=== PATIENT | female | born 1930 | race Caucasian/White ===

== ENCOUNTER 2016-04-15 11:48 | Inpatient (IN) | payer MEDICARE, BC ==
--- NOTE | ~2016-04-15 | CR72 ---
[facility] A Service of [facility] RADIOLOGY TEXT RESULTS PATIENT: MANDY GORDILLO LOCATION: [facility] 569-01 : 32 UNIT #: [id number] AGE: [address]: Zion Stoner MD SEX: F ORDER DR: [id number] [facility] [address] [place], [place] [address] [id number] I MR#: [id number] Acc #: [id number] NAME: MANDY GORDILLO : 1930 SEX: F STUDY DATE/TIME: 04/15/2016 11:25 UNIT: [facility] ROOM: [facility] STUDY DESCRIPTION: CR Chest Single View Portable Attending Physician: Zion Stoner M.D. Ordering Physician: Usha Alegre M.D. Primary Care Physician: Danny Nicolas M.D. MEDICAL IMAGING REPORT This report is preliminary unless electronic signature is present EXAM Chest x-ray portable single view frontal. HISTORY Short of air, chest pain for a month, history of hypertension. COMMENT Single frontal portable view of the chest timed 11:25 on 04/15/2016 reviewed. Comparison from 07/29/2003. Patient has had a left shoulder arthroplasty. 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 The cardiac silhouette is moderately enlarged and there is at least ectasia of the thoracic aorta. Film is lordotic and the patient is also rotated. I believe there is some underlying chronic lung disease with distortion of parenchymal markings, and there is either some atelectasis or chronic scarring at the lung bases. No pneumothorax. No congestive failure. No pleural effusion. IMPRESSION 1. Moderate cardiac silhouette enlargement with at least ectasia of the thoracic aorta. Probably some chronic interstitial disease and some either chronic scarring or atelectasis at lung bases, but otherwise no acute infiltrate, no acute congestive failure, pleural effusion or pneumothorax suspected. Study is limited by patient rotation to the right side lordotic film positioning. 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 Dictated by... Tori Dixon M.D. THIS IS AN ELECTRONICALLY VERIFIED REPORT Tori Dixon M.D. at 04/16/2016 11:38 AM [facility] A Service of [facility] RADIOLOGY TEXT RESULTS PATIENT: MANDY GORDILLO LOCATION: [facility] 569-01 : 32 UNIT #: [id number] AGE: [address]: Zion Stoner MD SEX: F ORDER DR: LEN/keshia TD: 04/15/2016 23:36 JOB #: [id number] MEDICAL IMAGING REPORT COPY
--- NOTE | ~2016-04-15 | HP ---
Unit #: [id number] #: [id number] Patient: MANDY GORDILLO [id number] [facility]. [place], [place] [address] [id number] I MR#: [id number] NAME: MANDY GORDILLO ROOM: 569 Age: 86 Sex: F Admission Date: 04/15/2016 : 1930 Attending Physician: Zion Stoner M.D. Primary Care Physician: Danny Nicolas M.D. HISTORY AND PHYSICAL CHIEF COMPLAINT Shortness of breath. HISTORY OF PRESENT ILLNESS 86-year-old female who has COPD, has had a gradual worsening shortness of breath, primarily dyspnea on exertion. It worsened to the point where she required presentation to the emergency room. Saturations were 88% upon presentation. She was treated with steroids and admitted to the hospital. She then was treated with nebulized bronchodilators, oral antibiotics and steroids were continued. She does feel better today. She had some mild wheezing, mildly increased mucopurulent sputum, but denied fever or hemoptysis or chest pain. She does have some dyspnea on exertion at baseline and some chronic mild sputum production but generally feels that she does fairly well. PAST MEDICAL HISTORY Remarkable for: 1. COPD. 2. History of hypertension. Otherwise, she denies any medical problems. When I asked her what her medications were she said "I have a whole list" but yet denies any other problems. Per her Med Rec list, it looks like she has hypothyroidism, depression, hyperlipidemia and chronic pain. There is some mention of pulmonary hypertension in the EHR but she denies that. MEDICATIONS Medications per Med Rec sheet include: 1. Fosamax. 2. Synthroid. 3. Mirapex extended release. 4. Morphine. 5. Gabapentin. 6. Hydrocodone. 7. Lisinopril. 8. Celexa. 9. Pravastatin. 10. Meloxicam. 11. Desyrel. 12. Aspirin. ALLERGIES Demerol, sulfa, unknown reaction. Unit #: [id number] #: [id number] Patient: MANDY GORDILLO SOCIAL HISTORY She tells me she quit smoking 20 years ago although the ER face sheet states that she smokes. FAMILY HISTORY No familial lung disease. REVIEW OF SYSTEMS No fever, chills, weight loss, chest pain, palpitations, abdominal pain, melena, hematochezia, hematuria, dysuria, focal weakness, paresthesias, leg pain or swelling, headache, dizziness. Further review of systems negative. PHYSICAL EXAMINATION GENERAL: Elderly but quite pleasant female who is sitting on the side of her bed with oxygen on, reading a book. VITAL SIGNS: She is afebrile. Pulse 78, respiratory rate 18, blood pressure is 157/76. She is 5 foot 2, 122 pounds. HEENT: Pupils equal, round, reactive to light. Sclerae anicteric. Head atraumatic. Neck supple. No supraclavicular or cervical adenopathy appreciated. Mucous membranes moist. She does have dentures. CHEST: Mildly prolonged expiratory phase. No definite wheeze, stridor or consolidation. CARDIAC EXAMINATION: Regular rate and rhythm. Soft murmur. ABDOMEN: Soft, nontender. No hepatomegaly or rebound. EXTREMITIES: No clubbing, cyanosis or edema. No calf tenderness. SKIN: Warm and dry without rash or diaphoresis. NEUROLOGICAL: Grossly intact. No focal muscle or sensory deficits. DIAGNOSTIC STUDIES LABORATORY: BUN is 14, creatinine is 0.8. BNP 406. INR normal. Cardiac enzymes negative. CBC normal. Influenzae screen negative. IMAGING: CT angiogram - emphysema. No PE. There was some mention of something in her liver. This will have to be followed up as an outpatient. Previous CAT scan just last month made no mention of that. CARDIOVASCULAR: Rhythm strips have been sinus. No definite acute ischemic changes. IMPRESSION 1. Shortness of breath, possibly multifactorial. 2. Acute exacerbation of chronic obstructive pulmonary disease. 3. Some mention of pulmonary hypertension in the EHR but the patient denies. 4. Overall poor database. 5. Suspected hypertension, hypothyroidism, chronic pain, depression and hyperlipidemia. PLAN IV steroids, oxygen to maintain adequate saturations and oral antibiotics. An echocardiogram will be checked. Room air oxygenation needs will be Unit #: [id number] #: [id number] Patient: MANDY GORDILLO checked tomorrow. She may benefit from some type of controlling agent at discharge. Ultimately, she would benefit from PFTs. Dictated by Zion Stoner M.D. KENN/yamileth TD: 04/16/2016 11:23 JOB #: [id number] HISTORY AND PHYSICAL X Zion Stoner MD HISTORY AND PHYSICAL
--- NOTE | ~2016-04-15 | CT16 ---
[facility] A Service of [facility] RADIOLOGY TEXT RESULTS PATIENT: MANDY GORDILLO LOCATION: [facility] 569-01 : 32 UNIT #: [id number] AGE: [address]: Zion Stoner MD SEX: F ORDER DR: [id number] [facility] [address] [place], [place] [address] [id number] I MR#: [id number] Acc #: [id number] NAME: MANDY GORDILLO : 1930 SEX: F STUDY DATE/TIME: 04/15/2016 14:33 UNIT: [facility] ROOM: [facility] STUDY DESCRIPTION: CT Angio Chest for PE Attending Physician: Zion Stoner M.D. Ordering Physician: Usha Alegre M.D. Primary Care Physician: Danny Nicolas M.D. MEDICAL IMAGING REPORT This report is preliminary unless electronic signature is present EXAM CT angiography of the chest for PE, 04/15/2016 HISTORY Short of air for 1 month. Chest pain. Pulmonary hypertension. TECHNIQUE This CT exam was performed with one or more of the following radiation dose reduction techniques: automatic exposure control, adjustment of mA and/or kV according to patient size, and iterative reconstruction. FINDINGS CT pulmonary angiography performed with intravenous administration of 80 mL Isovue-370. Most recent chest CT for comparison 04/01/2015. Study degraded by streak artifact from left shoulder arthroplasty. Visualized portions of thyroid unremarkable. No axillary adenopathy. No mediastinal or hilar adenopathy. Heart upper limits of normal in size. No significant pleural effusions. There may be a trace amount of pleural fluid on the right. The liver is unremarkable. The patient is status post cholecystectomy. Stable prominence of the extrahepatic common duct without obstructing process seen in visualized extent of the common duct. No change from prior study. Likely physiologic and related to prior cholecystectomy. Along the anteromedial aspect of the spleen there is a 2.8 cm x 1.8 cm cystic structure, which is stable to decreased in size from 04/01/2015. Also present 10/27/2010. Favored to be a benign cyst given stability over this time frame. The pancreas, adrenal glands, upper renal poles unremarkable. No upper abdominal adenopathy. Esophagus, and visualized portions of stomach, small bowel and colon are unremarkable. Pulmonary parenchyma shows underlying centrilobular and panlobular emphysema. Compared to 04/01/2015 there is subtle interlobular septal thickening in the upper lung zones and subtle linear interstitial STS. [facility] A Service of [facility] RADIOLOGY TEXT RESULTS PATIENT: MANDY GORDILLO LOCATION: [facility] 569-01 : 32 UNIT #: [id number] AGE: [address]: Zion Stoner MD SEX: F ORDER DR: densities in the periphery of the lungs. Some of this appearance might be explained by differences in CT technique with thinner section imaging on the current study. Borderline interstitial edema may be considered. There is dependent atelectasis at the lung bases, slightly greater on right than left but mild overall. There is mild bronchial wall prominence which is stable and probably reflects components of chronic bronchitis. The pulmonary arteries are well opacified. The main pulmonary artery is prominent at 3.4 cm in diameter, previously 3.3. Consistent with given diagnosis of pulmonary arterial hypertension. No PE. The aortic root measures about 3.4 cm in diameter. No significant change. The ascending aorta measures approximately 3.3 cm in diameter. Scattered atherosclerotic arterial calcifications. Visualized aortic branch vessels appear grossly patent. There is stable marked thoracolumbar scoliosis convex to the right and thoracic spine to the left in the lumbar spine. Marked degenerative changes in the right shoulder. No acute-appearing bony abnormality. Review of the upper abdomen shows questionable mural based filling defect, posterior aspect of the common bile duct measuring about 3 mm x 7 mm x 9 mm. This is quite subtle. It is not clearly evident on prior examinations. It is not calcified. Noncalcified ductal stone is a consideration. Tumefactive sludge is a consideration. Possibility of mural-based neoplasm not excluded. Correlation with MRCP recommended. If confirmed on MRCP, ERCP may be warranted for further evaluation. IMPRESSION 1. No PE. Prominence of the main pulmonary artery at 3.4 cm not significantly changed from prior study and consistent with given history of pulmonary arterial hypertension. 2. No aortic dissection or peter aneurysm. Mild ectasia aortic root measuring about 3.4 cm in diameter. Not significantly changed. Ascending aorta measures about 3.3 cm in diameter. The visualized aortic branch vessels are grossly patent. 3. Evidence of COPD with centrilobular and panlobular emphysema as well as mild generalized bronchial wall thickening likely reflecting chronic bronchitis. There is no bronchiectasis. 4. Borderline prominence of intralobular septi at the lung apices and linear interstitial densities in the periphery of the lungs bilaterally. The appearance may simply reflect thin section imaging for CT pulmonary angiogram protocol. The possibility of borderline interstitial edema could be considered. Wait should be given clinical assessment. No evidence of airspace edema. There is minimal dependent atelectasis at lung bases. 5. Patient is status post cholecystectomy. There is stable intra and extrahepatic biliary ductal dilatation. There is a subtle apparently mural-based soft tissue density structure along the posterior aspect of the extrahepatic common duct which measures about 3 cm x 6 cm x 9 cm. Its appearance is nonspecific. It may represent a noncalcified STS. [facility] A Service of [facility] RADIOLOGY TEXT RESULTS PATIENT: MANDY GORDILLO LOCATION: [facility] 569- : 32 UNIT #: [id number] AGE: [address]: Zion Stoner MD SEX: F ORDER DR: ductal stone. Tumefactive sludge is a consideration. I cannot exclude a mural-based neoplastic nodule. I do not see this finding on prior imaging. Correlation with MRCP recommended. If MRCP confirms the presence of this abnormality, ERCP may be warranted. Please see remainder of additional incidental findings in body of report above. Dictated by... Enrrique Campos M.D. THIS IS AN ELECTRONICALLY VERIFIED REPORT Enrrique Campos M.D. at 04/16/2016 4:26 PM MAITE/hu TD: 04/16/2016 05:06 JOB #: [id number] MEDICAL IMAGING REPORT COPY
--- NOTE | ~2016-04-15 | DS ---
Unit #: [id number] #: [id number] Patient: MANDY GORDILLO [id number] [address] [id number] I MR#: [id number] NAME: MANDY GORDILLO ROOM: 569 Age: 86 Sex: F Admission Date: 04/15/2016 : 1930 Discharge Date: 04/17/2016 Attending Physician: Zion Stoner M.D. Primary Care Physician: Danny Nicolas M.D. DISCHARGE SUMMARY DISCHARGE DIAGNOSES 1. Acute respiratory failure, hypoxemic. 2. Chronic obstructive pulmonary disease with exacerbation. 3. Pulmonary hypertension with an RVSP of 45. 4. Normal left ventricular function with an EF estimated at 65. 5. Systemic hypertension. 6. Chronic pain. 7. Hypothyroidism. 8. Osteoporosis. 9. Hyperlipidemia. DISCHARGE MEDICATIONS 1. Oxygen at 2 liters 24 hours a day. 2. MS Contin 30 mg b.i.d. 3. Doxycycline 100 mg b.i.d. for 5 days. 4. Synthroid 0.05 mg daily. 5. Fosamax weekly. 6. Prednisone 40 mg daily for 5 days. 7. Neurontin 600 mg t.i.d. 8. Celexa 10 mg h.s. 9. Trazodone 50 mg h.s. 10. Mirapex 0.25 mg daily. 11. Pravastatin 40 mg daily. 12. Zestril 20 mg b.i.d. 13. Aspirin 81 mg daily. 14. Mobic 15 mg daily. 15. Hydrocodone 5/325 t.i.d. p.r.n. FOLLOWUP 1. She will follow up with Dr. Stoner's nurse practitioner in two weeks, arrange outpatient PFTs. 2. Follow with Dr. Stoner in 6 to [address] Nicolas in 2 weeks. DIET As tolerated. ACTIVITY Oxygen 24 hours a day. HOSPITAL COURSE The patient was admitted through the hospital emergency room with shortness of breath. She was somewhat of a poor historian but basically had gradually increasing shortness of breath. Saturations were 88% on Unit #: [id number] #: [id number] Patient: RAND,MANDY presentation to the ER. She was admitted, treated with steroids, mini nebs, oral antibiotics and she actually felt better. She had some mild wheezing but that gradually improved and on the day of discharge her chest was clear. We reviewed all of her test results including her echocardiogram and her low saturations requiring oxygen at home. We also discussed the results of her CT scan which revealed no pulmonary embolism, was evidence of emphysema. We discussed staying in the hospital for further treatment but she really requested going home. She was able to perform all activities of daily living. Her chest now was entirely clear and, quite frankly, I am not convinced her oxygenation will improve in just one day. She will be discharged on oxygen, Symbicort will be added two puffs b.i.d. and albuterol as needed. In the office, we will check oxygenation needs and order PFTs. Of note, CT scan revealed a subtle mural-based soft tissue density in the posterior aspect of the extrahepatic common duct and consideration of repeat followup imaging with MRCP was recommended. This was Dr. Campos the radiologist who was reading the test and recommended that. I will leave this up to Dr. Nicolas if needed. Dictated by... Zion Stoner M.D. KENN/lorenzo TD: 04/18/2016 21:59 JOB #: [id number] DISCHARGE SUMMARY X Zion Stoner MD DISCHARGE SUMMARY
[~2016-04-15 11:48] MED LIST: ALENDRONATE SOD70 MG PO; COLAZAL750 MG PO; HYDROCODON-ACE1 EACH PO; LEVOTHYROXINE75 MCG PO; PRAVASTATIN SOD40 MG PO; PRILOSEC PO; VESICARE5 MG PO; WARFARIN SODIUM6 M1 PO
[2016-04-15 11:50] LABS: BASOPHIL% 0.5 % (0-2.5); DIFF IND NO; EOSINOPHIL# 0.1 X10e3 (0-0.7); EOSINOPHIL% 1.4 % (0.0-7.0); HEMATOCRIT 33.3 % (35.0-45.0); LYMPHOCYTE# 0.7 X10e3 (1.0-3.5); LYMPHOCYTE% 9.7 % (17.0-45.0); MEAN CELL VOLUME 90.6 FL (83-96); MEAN CORPUSCULAR HEMOGLOBIN 29.9 PG (28-34); MEAN PLATELET VOLUME 8.2 FL (6.5-11.5); MONOCYTE# 0.6 X10e3 (0-1.0); MONOCYTE% 9.4 % (3.0-12.0); NEUTROPHIL# 5.4 X10e3 (1.5-7.1); PLATELET COUNT 207 X10e3 (140-420); RED BLOOD COUNT 3.68 X10e (3.90-5.30); RED CELL DISTRIBUTION WIDTH 14.1 % (11.0-15.5); WHITE BLOOD COUNT 6.8 X10e3 (4.0-10.5)
[2016-04-15 12:01] LABS: POC - CKMB 1.6 ng/mL (0.0-7.9); POC - TROPONIN 0.07 ng/mL (<=0.05)
[2016-04-15 12:03] LABS: PROTHROMBIN TIME (PATIENT) 10.5 SECONDS (9.6-11.5)
[2016-04-15 12:19] LABS: BILIRUBIN, DIRECT 0.2 mg/dL (0.0-0.2); BILIRUBIN,INDIRECT 0.7 mg/dL (0.0-0.9); BILIRUBIN,TOTAL 0.9 mg/dL (0.2-2.0); CALCIUM SERUM 8.9 mg/dL (8.4-10.2); GLOM FILT RATE Estimated 56.1 mL/min (>60); POTASSIUM 4.2 mmol/L (3.5-5.1); PROTEIN TOTAL SERUM 6.6 g/dL (6.0-8.3)
[2016-04-15 15:18] LABS: POC - CKMB 1.3 ng/mL (0.0-7.9); POC - TROPONIN <0.05 ng/mL (<=0.05)
[2016-04-15] MEDS ORDERED: ALENDRONATE SOD70 MG PO (16:14)
[2016-04-15] MEDS ORDERED: LEVO-T50 MCG PO (16:15)
[2016-04-15] MEDS ORDERED: MIRAPEX0.25 MG PO (16:15)
[2016-04-15] MEDS ORDERED: MORPHINE SULFAT30 M5 PO (16:16)
[2016-04-15] MEDS ORDERED: GABAPENTIN600 MG PO (16:17)
[2016-04-15] MEDS ORDERED: HYDROCODON-ACE1 EAC7 PO (16:17)
[2016-04-15] MEDS ORDERED: LISINOPRIL20 MG PO (16:18)
[2016-04-15] MEDS ORDERED: CELEXA10 M1 PO (16:20)
[2016-04-15] MEDS ORDERED: PRAVASTATIN SOD40 MG PO (16:20)
[2016-04-15] MEDS ORDERED: ASPIRIN81 MG PO (16:21)
[2016-04-15] MEDS ORDERED: MELOXICAM15 MG PO (16:21)
[2016-04-15] MEDS ORDERED: DESYREL50 MG PO (16:21)
[2016-04-15 19:01] LABS: INFLUENZA A NEG (NEG); INFLUENZA B NEG (NEG)
[2016-04-16 06:36] LABS: HEMATOCRIT 36.6 % (35.0-45.0); MEAN CELL VOLUME 90.2 FL (83-96); MEAN CORPUSCULAR HEMOGLOBIN 29.5 PG (28-34); MEAN CORPUSCULAR HGB CONC 32.7 g/dL (30-36); MEAN PLATELET VOLUME 8.9 FL (6.5-11.5); RED BLOOD COUNT 4.05 X10e (3.90-5.30)
[2016-04-16 07:08] LABS: BLOOD UREA NITROGEN 14 mg/dL (9-23); CALCIUM SERUM 9.2 mg/dL (8.4-10.2); CARBON DIOXIDE 27 mmol/L (22-31); CHLORIDE 99 mmol/L (100-111); CREATININE SERUM 0.8 mg/dL (0.6-1.4); GLOM FILT RATE Estimated ABOVE60 mL/min (>60); GLUCOSE FASTING 151 mg/dL (70-110); POTASSIUM 3.9 mmol/L (3.5-5.1); SODIUM 136 mmol/L (135-145)
[2016-04-17] MEDS ORDERED: PREDNISONE PO (17:21)
[2016-04-17] MEDS ORDERED: DOXYCYCLINE HY100 M3 PO (17:23)
[2016-04-17] MEDS ORDERED: SYMBICORT INH (17:23)
[2016-04-17] MEDS ORDERED: PROAIR HFA8.5 GM INH (17:24)
== END 2016-04-17 18:35 | disposition home or self-care (01) | DRG 189 ==
LOC: CED 11:48 → CEDOF 16:10 → C5C 22:41
PROVIDERS: Emergency Medicine; Internal Medicine
PROC: B32SZZZ Computerized Tomography (CT Scan) of Right Pulmonary Artery (ICD-10-PCS; principal; 2016-04-15)
PROC: B32TZZZ Computerized Tomography (CT Scan) of Left Pulmonary Artery (ICD-10-PCS; 2016-04-15)
DX: J96.01 Acute respiratory failure with hypoxia (principal); I27.2 Other secondary pulmonary hypertension; J44.1 Chronic obstructive pulmonary disease with (acute) exacerbation; Z87.891 Personal history of nicotine dependence; I10 Essential (primary) hypertension; G89.29 Other chronic pain; E03.9 Hypothyroidism, unspecified; M81.0 Age-related osteoporosis without current pathological fracture; E78.5 Hyperlipidemia, unspecified; F32.9 Major depressive disorder, single episode, unspecified; Z88.2 Allergy status to sulfonamides; Z88.8 Allergy status to other drugs, medicaments and biological substances
CPT/HCPCS: 36415; 71010; 71275; 80048; 80076; 82553; 82947; 83880; 84484; 85025; 85027; 85379; 85610; 87804; 90732; 93005; 93306; 94640; 94760; 96374; 99284; 99285; C9113; G0009; J0360; J1650; J2920; J2930; Q9967

== ENCOUNTER → 2016-09-28 | Outpatient (CLI) | payer MEDICARE, BC ==
[~2016-09-28] MED LIST changes: +ASPIRIN81 MG PO; +CELEXA10 M1 PO; +DESYREL50 MG PO; +DOXYCYCLINE HY100 M3 PO; +GABAPENTIN600 MG PO; +HYDROCODON-ACE1 EAC7 PO; +LEVO-T50 MCG PO; +LISINOPRIL20 MG PO; +MELOXICAM15 MG PO; +MIRAPEX0.25 MG PO; +MORPHINE SULFAT30 M5 PO; +PREDNISONE PO; +PROAIR HFA8.5 GM INH; +SYMBICORT INH
--- NOTE | ~2016-09-28 | CT5 ---
[facility] A Service of [facility] RADIOLOGY TEXT RESULTS PATIENT: MANDY GORDILLO O LOCATION: [facility] : 32 UNIT #: [id number] AGE: [address]: Danny Nicolas MD SEX: F ORDER DR: [id number] [facility] [address] [place], [place] [address] [id number] O MR#: [id number] #: [id number] NAME: MANDY GORDILLO : 1930 SEX: F STUDY DATE/TIME: 09/28/2016 8:59 UNIT: [facility] ROOM: STUDY DESCRIPTION: CT Abdomen W Cont Attending Physician: Danny Nicolas M.D. Referring Physician: Danny Nicolas M.D. Ordering Physician: Danny Nicolas M.D. Primary Care Physician: Danny Nicolas M.D. MEDICAL IMAGING REPORT This report is preliminary unless electronic signature is present EXAM CT abdomen with contrast INDICATIONS Upper to mid left-sided abdominal pain since 09/22/2016 PROCEDURE Contrast-enhanced CT of the abdomen COMPARISON 05/06/[address] exam was performed with one or more of the following radiation dose reduction techniques: automatic exposure control, adjustment of mA and/or kV according to patient size, and iterative reconstruction. FINDINGS Abdomen with contrast: Emphysema in the lung bases. Liver unremarkable. The splenic cyst or hemangioma is similar measuring 3 cm. Previous cholecystectomy. The common duct measures up to 1.4 cm. Suspected, 11 mm stone or possibly mass in the common duct. There is pneumobilia. Pancreatic atrophy, with a stable 9 mm cyst in the body of the pancreas in keeping with benign finding. Kidneys show no acute abnormality. Adrenal glands are unremarkable. The included bowel loops are nondilated. No aggressive appearing bone lesion. Subacute nondisplaced fracture of the posterior left tenth rib. Dextrocurvature of the lumbar spine with multilevel degenerative change. [facility] A Service [facility] RADIOLOGY TEXT RESULTS PATIENT: MANDY GORDILLO LOCATION: [facility] : 32 UNIT #: [id number] AGE: [address]: Danny Nicolas MD SEX: F ORDER DR: IMPRESSION 1. Prominence of the common duct is similar to the prior. There is a suspected 11 mm stone in the common duct. This could be confirmed with MRCP or ERCP. 2. Multiple other incidental findings are detailed above are not significantly changed from the prior study. Dictated by... Perez Jimenez M.D. THIS IS AN ELECTRONICALLY VERIFIED REPORT Perez Jimenez M.D. at 10/01/2016 8:50 AM COREEN/dereck TD: 09/28/2016 14:07 JOB #: [id number] MEDICAL IMAGING REPORT Page 1 of 1 COPY
[2016-09-28 10:21] LABS: POC - CREATININE 0.93 mg/dL (0.44-1.03); POC - GFR >60.0 mL/min (>60)
== END | disposition home or self-care (01) ==
LOC: CCAT 07:24
PROVIDERS: Family Medicine
DX: R10.9 Unspecified abdominal pain (principal)
CPT/HCPCS: 74160; 82565; Q9967